=== PATIENT | female | born 1935 | race Caucasian/White ===

== ENCOUNTER 2022-10-07 00:11 | Observation (INO) | payer MEDICARE, SELFPAY ==
[2022-10-07] VITALS (16 sets, daily range): BP systolic 131–166; BP diastolic 48–88; PULSE 51–62; RESP 16–33; TEMP 36.3–37.1; O2SAT 90–96; BMI 33.3
--- NOTE | ~2022-10-07 | XR_ITS ---
EXAMINATION: XR chest 1V portable DATE: 10/07/2022 01:17 INDICATION: Chest pain. Shortness of breath. TECHNIQUE: A single frontal view of the chest was obtained. COMPARISON: CT abdomen and pelvis 10/07/2008 FINDINGS: The patient is rotated to her right. There are mild airspace opacities in right mid and low er lung zones and left lower lung zone. No pleural effusion or pneumothorax. The heart size is normal . IMPRESSION: 1. Mild airspace opacities in right mid and lower lung zones and left lower lung zone, consistent wit h atelectasis versus pneumonia. Reviewed, dictated and finalized at location A. IMPRESSION: 1. Mild airspace opacities in right mid and lower lung zones and left lower margarita g zone, consistent with atelectasis versus pneumonia.
--- NOTE | 2022-10-07 00:40 | ECG_ITS ---
Measurements Intervals [place] Rate: 53 P: 40 IN: 177 QRS: -80 QRSD: 171 T: 41 QT: 479 QTc: 454 Interpretive Statements SINUS BRADYCARDIA RIGHT BUNDLE BRANCH BLOCK LEFT ANTERIOR FASCICULAR BLOCK CANNOT RULE OUT SEPTAL INFARCT, AGE INDETERMINATE BASELINE ARTIFACT- I, II, AVR ABNORMAL ECG NO PREVIOUS ECG AVAILABLE FOR COMPARISON Electronically Signed On 10-07-2022 8:45:54 CDT by Malik Wiley D.O.
[2022-10-07 00:56] LABS: Basophils Absolute Auto 0.1 K/mm3 (0.0-0.1); Basophils Percent Auto 0.8 % (0.2-1.2); Eosinophils Absolute Auto 0.4 K/mm3 (0-0.3); Eosinophils Percent Auto 4.1 % (0-4.4); Hematocrit 45.6 % (37.0-47.0); Hemoglobin 14.7 g/dL (12.0-15.0); Immature Granulocyte Absolute 0.16 K/mm3 (0.00-0.031); Immature Granulocyte Percent A 1.6 % (0-0.5); Lymphocytes Absolute Auto 1.95 K/mm3 (0.9-3.2); Mean Corpuscular HGB Conc 32.2 g/dl (32-36); Mean Corpuscular Hemoglobin 28.5 pg (26-34); Mean Corpuscular Volume 88.4 fl (80-100); Mean Platelet Volume 9.9 fl (7.4-10.4); Monocytes Absolute Auto 0.8 K/mm3 (0.1-0.6); Monocytes Percent Auto 7.7 % (2.6-8.5); Neutrophils Absolute Auto 6.9 K/mm3 (1.3-6.7); Neutrophils Percent Auto 66.8 % (45.5-73.1); Platelet Count Result 226 k/mm3 (150-375); Red Blood Count 5.16 M/mm3 (4.2-5.4); Red Cell Distribution Width 15.9 % (11.5-14.5); White Blood Count 10.3 K/mm3 (4.5-10.0)
[2022-10-07 01:13] LABS: Alanine Aminotransferase 19 U/L (6-35); Albumin Level 4.1 g/dL (3.5-5.1); Alkaline Phosphatase 75 U/L (38-126); Anion Gap 6 mmol/L (8-16); Aspartate Amino Transferase 26 U/L (14-36); Bilirubin,Total 1.3 mg/dL (0.2-1.3); Blood Urea Nitrogen 20 mg/dL (7-17); Calcium 8.2 mg/dL (8.4-10.2); Carbon Dioxide 29 mmol/L (22-30); Chloride 104 mmol/L (98-107); Estimated CRCL calculation 41 ml/min; Estimated Glomerular Filt Rate 53; Glucose 94 mg/dL (65-110); Magnesium 2.2 mg/dL (1.6-2.3); Sodium 139 mmol/L (137-145)
[2022-10-07 01:18] LABS: NT Pro B Type Natriuretic Pept 1580 pg/mL (19.9-100); Troponin I 0.013 ng/mL (0.000-0.034)
[2022-10-07 01:22] LABS: Lactic Acid Reflex 0.7 mmol/L (0.7-2.0)
[2022-10-07 01:36] LABS: INR 1.1; Prothrombin Time 14.7 Seconds (11.1-14.7)
[2022-10-07 01:38] LABS: Partial Thromboplastin Time 56.4 SECONDS (22.3-36.8)
--- NOTE | 2022-10-07 01:41 | ED.GENADULT ---
HPI - General Adult General Chief complaint: Shortness of Breath/Dyspnea Stated complaint: SOB Time Seen by Provider: 10/07/22 00:32 History of Present Illness HPI narrative: Patient is a 87-year-old female who presents the emergency department with chief complaint of shortness of breath. Patient reports she has history of hypertension and reports that her primary doctor has been adjusting her blood pressure medicines and this evening she started feeling short of breath. Patient states she may have had a little bit of tightness in her chest when this happened but reports that the symptoms have improved when she was transported by EMS. Prehospital she was given oxygen when her oxygen saturation was 90% on room air. Patient states that her shortness of breath has resolved at this time. Related Data Home Medications Medication Instructions Recorded Confirmed allopurinol 300 mg tablet 300 mg PO DAILY 02/02/20 amlodipine 10 mg-valsartan 160 1 tablet PO DAILY 02/02/20 mg-hydrochlorothiazide 25 mg tablet furosemide 40 mg tablet 40 mg PO QAM 02/02/20 lisinopril 40 mg tablet 40 mg PO DAILY 02/02/20 nebivolol 10 mg tablet (Bystolic) 10 mg PO DAILY 02/02/20 omeprazole magnesium 20 mg 20 mg PO DAILY 02/02/20 capsule,delayed release (Acid Wood Shingle Roofer (omeprazole)) Allergies Allergy/AdvReac Type Severity Reaction Status Date / Time acetaminophen Allergy Mild BREAKS OUT Verified 10/07/22 00:27 AND ITCH Sulfa (Sulfonamide Allergy Mild DOESN'T Verified 10/07/22 00:27 Antibiotics) REMEMBER Review of Systems Review of Systems: A 10 system review of systems was completed on the patient and is negative except for what is stated in the HPI. Nursing and ancillary documentation was reviewed. Exam Narrative: GENERAL: Well-appearing, well-nourished, and in no acute distress. HEAD: Normocephalic, atraumatic. EYES: PERRLA and EOMI. ENT: Nares clear, no rhinorrhea or epistaxis. Mucous membranes moist. NECK: Supple. CHEST: Clear to auscultation. No respiratory distress. HEART: Regular rate and rhythm. No murmur heard. Normal peripheral pulses. ABDOMEN: Soft, nontender, nondistended, normal active bowel sounds. EXTREMITIES: Normal range of motion. Trace edema. SKIN: Warm, dry, no rash. NEURO: No focal deficits. Alert and oriented x3. PSYCH: Normal mood and affect. Course Vital Signs Vital signs: Vital Signs Pulse Rate 56 L 10/07/22 00:13 Respiratory Rate 22 H 10/07/22 00:13 Blood Pressure 146/56 H 10/07/22 00:13 Pulse Oximetry 90 10/07/22 00:13 Oxygen Delivery Room Air 10/07/22 00:13 Pulse Rate 55 L 10/07/22 01:52 Respiratory Rate 16 10/07/22 01:52 Blood Pressure 164/88 H 10/07/22 01:52 Pulse Oximetry 91 10/07/22 01:52 Oxygen Delivery Room Air 10/07/22 00:13 Medical Decision Making MDM Narrative Medical decision making narrative: Differential diagnosis includes hypertensive urgency, CHF exacerbation, fluid overload, NSTEMI, acute valvular insufficiency, Patient's chest x-ray showed no focal infiltrate Laboratory studies showed a troponin of 0.013 and a BNP of 1580. The patient had a creatinine of 1.0 and a hemoglobin of 14.7. Patient was a no longer hypoxic upon arrival to the emergency department although whenever she the patient was ambulated her oxygen saturation dropped down to 87% without oxygen. The patient was given a 20 mg IV dose of Lasix in the emergency department and due to the hypoxia the patient was admitted for echo and also gentle diuresis and additional blood pressure control. Vital Signs Vital Signs: Vital Signs Pulse Rate 56 L 10/07/22 00:13 Respiratory Rate 22 H 10/07/22 00:13 Blood Pressure 146/56 H 10/07/22 00:13 Pulse Oximetry 90 10/07/22 00:13 Oxygen Delivery Room Air 10/07/22 00:13 Pulse Rate 55 L 10/07/22 01:52 Respiratory Rate 16 10/07/22 01:52 Blood Pressure 164/88 H 10/07/22 01:52 Pulse Oximetry
--- NOTE | 2022-10-07 01:50 | PC.NURSE ---
Per EDP, patient to be ambulated to assess desaturation with exertion. Patient oxygen level decreased to 87%. EDP notified.
[2022-10-07 02:00] LABS: Potassium 3.9 mmol/L (3.4-5.0)
--- NOTE | 2022-10-07 02:11 | PM.IMHP ---
H&P: HPI History of Present Illness Date/Time: 10/07/22 02:11 Chief Complaint: Shortness of breath Narrative: This is an 87-year-old female with past medical history significant for hypertension, gout, GERD, patient presents to the emergency room via EMS due to shortness of breath and low oxygen saturation at home of 90%. Patient is really a poor historian states that she has been having trouble controlling her blood pressure and she was recently placed on a new medication and her primary care physician has been trying to adjust it. Patient denies any fevers, rigors, chills, nausea, vomiting, diarrhea, abdominal pain. Preliminary workup was significant for a chest x-ray was reported as: EXAMINATION: XR chest 1V portable DATE: 10/07/2022 01:17 INDICATION: Chest pain. Shortness of breath. TECHNIQUE: A single frontal view of the chest was obtained. COMPARISON: CT abdomen and pelvis 10/07/2008 FINDINGS: The patient is rotated to her right. There are mild airspace opacities in right mid and lower lung zones and left lower lung zone. No pleural effusion or pneumothorax. The heart size is normal. IMPRESSION: 1. Mild airspace opacities in right mid and lower lung zones and left lower lung zone, consistent with atelectasis versus pneumonia. Patient is been admitted for further evaluation management and treatment. Review of Systems Review of Systems: Patient is really poor historian states that has been having problems with her blood pressure recently started on a new medication and primary care physician has been trying to adjust comes in due to shortness of breath and low oxygen saturation Constitutional: Constitutional: Denies chills Cardiovascular: Cardiovascular: Reports dyspnea Respiratory: Respiratory: Reports cough Musculoskeletal: Musculoskeletal: Reports other (Right leg hardware and swelling) Integumentary/Breasts: Skin/Breast: Denies rash Neurologic: Denies focal weakness and Denies Sensory deficit (Neuro) Psychiatric: Psychiatric: Reports no additional psychiatric complaints and Reports as per HPI Endocrine: Endocrine: Reports no additional endocrine complaints, Reports as per HPI and Reports cold intolerance Hematologic/Lymphatic: Hematologic/Lymphatic: Reports no additional hematologic/lymphatic complaints and Reports as per HPI Allergic/Immunologic: Allergic/Immunologic: Reports no additional allergic/immunologic complaints and Reports as per HPI [facility] Social History Social History Smoking status: Former smoker Tobacco type: cigarettes Alcohol intake: never Substance use: never Substance use type: does not use Lack of Transportation: No Lack of Food: Never True Current Housing: I Have Housing Concerned About Future Housing: No Difficulty Paying Gas/Electric Bills: No Difficulty Paying for Meds: No Currently Unemployed: No Education: High School Diploma/GED Difficulty w/ Childcare or Family Care: No Spiritual care concerns: No Meds Home Medications and Allergies Home Medications Medication Instructions Recorded Confirmed Type allopurinol 300 mg tablet 300 mg PO DAILY 02/02/20 10/07/22 History lisinopril 40 mg tablet 40 mg PO DAILY 02/02/20 10/07/22 History nebivolol 10 mg tablet (Bystolic) 10 mg PO DAILY 02/02/20 10/07/22 History omeprazole magnesium 20 mg 20 mg PO DAILY 02/02/20 10/07/22 History capsule,delayed release (Acid Chicken Raiser (omeprazole)) alprazolam 0.25 mg tablet 0.25 mg PO TID PRN Anxiety 10/07/22 10/07/22 History amlodipine 10 mg tablet 10 mg PO DAILY 10/07/22 10/07/22 History pravastatin 20 mg tablet 20 mg PO DAILY 10/07/22 10/07/22 History vitamin B complex (B 1 tablet PO DAILY 10/07/22 10/07/22 History Complex-Vitamin B12 tablet) Allergies Allergy/AdvReac Type Severity Reaction Status Date / Time acetaminophen Allergy Mild BREAKS OUT Verified 10/07/22 00:27 AND I
[2022-10-07] MEDS: FUROSEMIDE INJ 40 MG/4 ML VIAL 20 MG IV PUSH (02:13)
--- NOTE | 2022-10-07 03:43 | ADMGEN ---
This patient, Maria E Cobb, was admitted to IMU Room 205-01. Patient/family oriented to hospital policies and general routines including ID bracelet, bed and alarms, visiting hours, pain management, procedures, bathroom and other care routines, personal items, smoking policy, room service/diet, and visiting hours. Information on how to activate the Rapid Response Team has been discussed. Patient/Family are encouraged to report perceived risks to care and to ask questions if they do not understand what they are told or what they should do.
[2022-10-07 05:05] LABS: Troponin I < 0.012 ng/mL (0.000-0.034)
[2022-10-07] MEDS: IPRATROPIUM BR 0.02% INH SOLN 0.5 MG/2.5 ML VIAL INHALATION (08:07)
[2022-10-07] MEDS: ALBUTEROL SULFATE NEB 2.5 MG/3 ML INH INHALATION (08:07)
[2022-10-07 08:39] LABS: Troponin I < 0.012 ng/mL (0.000-0.034)
[2022-10-07] MEDS: ENOXAPARIN 40 MG/0.4 ML SYRINGE SUB-Q (09:04)
[2022-10-07] MEDS: FUROSEMIDE INJ 40 MG/4 ML VIAL IV PUSH (09:04)
--- NOTE | 2022-10-22 15:53 | P.DS_ITS ---
DS: Admitting Diagnosis Discharge Date 10/07/22 Admitting Diagnosis sob DS: Discharge Diagnosis Discharge Diagnosis (1) Acute dyspnea: Code(s): R06.00 - Dyspnea, unspecified Status: Acute Assessment and Plan: Admit to med tele Supplemental oxygen and needed Try and keep oxygen saturation 98% Likely secondary to congestive heart failure Supportive care Continue to monitor (2) Elevated brain natriuretic peptide (BNP) level: Code(s): R79.89 - Other specified abnormal findings of blood chemistry Status: Acute Assessment and Plan: Aggressive diuresis Echocardiogram in a.m. Fluid restriction to 1500 cc in 24 hours of free water Supportive care Continue to monitor (3) Uncontrolled hypertension: Code(s): I10 - Essential (primary) hypertension Status: Acute Assessment and Plan: Resume home meds Continue to monitor DS: Summary Hospital Course Hospital Course: 87-year-old female with past medical history significant for hypertension, gout, GERD, patient presents to the emergency room via EMS due to shortness of breath and low oxygen saturation at home of 90%.? Patient is really a poor historian states that she has been having trouble controlling her blood pressure and she was recently placed on a new medication and her primary care physician has been trying to adjust it.? Patient denies any fevers, rigors, chills, nausea, vomiting, diarrhea, abdominal pain. patient left AMA prior to eval by hospitalist. Time Spent with Patient Time attestation: Total time spent providing and/or coordinating discharge services: Discharge Plan Discharge Consulting providers: Dimas Boyd V.; Malik Wiley Patient Disposition: Left Against Medical Advice Patient Instructions: Chest Pain (DC), Chronic Hypertension (DC) Discharge Medications: No Action omeprazole magnesium [Acid Industrial Engineering Director (omeprazole)] 20 mg capsule,delayed release(DR/EC) 20 mg PO DAILY lisinopril 40 mg tablet 40 mg PO DAILY allopurinol 300 mg tablet 300 mg PO DAILY Bystolic 10 mg tablet 10 mg PO DAILY amlodipine 10 mg Tablet 10 mg PO DAILY vitamin B complex [B Complex-Vitamin B12] Tablet 1 tablet PO DAILY pravastatin 20 mg Tablet 20 mg PO DAILY alprazolam 0.25 mg Tablet 0.25 mg PO TID PRN (Reason: Anxiety) Date of admission: 10/07/22 02:08 Primary Care Provider: Den,Javier Sanon Admitting Provider: Sun Paredes V. Attending physician on admission: Nona Bernstein Condition: Stable
== END 2022-10-07 11:15 | disposition left against medical advice (07) ==
LOC: ANHED 02:22 → ANHIMU 03:51
PROVIDERS: Admitting Provider Internal Medicine; Emergency Provider Emergency Medicine; PCP Internal Medicine; Visit Provider Student in an Organized Health Care Education/Training Program
DX: R06.00 Dyspnea, unspecified (principal); R79.89 Other specified abnormal findings of blood chemistry; I10 Essential (primary) hypertension; I45.2 Bifascicular block; R94.31 Abnormal electrocardiogram [ECG] [EKG]; R91.8 Other nonspecific abnormal finding of lung field; M10.9 Gout, unspecified; K21.9 Gastro-esophageal reflux disease without esophagitis; R09.02 Hypoxemia; Z87.891 Personal history of nicotine dependence; Z79.899 Other long term (current) drug therapy
CPT/HCPCS: 36415; 71045; 80053; 83605; 83735; 83880; 84484; 85025; 85610; 85730; 93005; 94640; 96372; 96374; 96376; 99285; G0378; J1650; J1940

== ENCOUNTER 2022-12-29 08:41 | Inpatient (IN) | payer MEDICARE, SELFPAY ==
[2022-12-29] VITALS (7 sets, daily range): BP systolic 138–175; BP diastolic 59–92; PULSE 59–67; RESP 18–33; TEMP 36.1–37.4; O2SAT 90–99; BMI 38.5
--- NOTE | ~2022-12-29 | US_ITS ---
EXAMINATION:US venous doppler LE BI INDICATION:Leg edema TECHNIQUE: Multiple grayscale, color flow and Doppler images of the right and left lower extremity de ep venous systems were obtained and reviewed. COMPARISON:No prior studies for comparison. FINDINGS: The common femoral, superficial femoral and popliteal veins demonstrate normal respiratory variation, augmentation and compressibility. Color flow is also seen within the posterior tibial, pe roneal, greater saphenous and profunda veins. IMPRESSION: 1: No lower extremity deep venous thrombosis. Reviewed, dictated and finalized at location A.
--- NOTE | ~2022-12-29 | XR_ITS ---
XR chest 2V DATE: 12/29/2022 09:26 INDICATION: Shortness of breath. History of COPD TECHNIQUE: AP and lateral views COMPARISON: 10/07/2022 portable AP chest at 0114 hours FINDINGS: Limited rotated AP view. Borderline heart size. No hilar or mediastinal enlargement is evident. Mild discoid atelectasis or scarring in the left mid and lower lung. Minimal infiltrate or atelectasi s in the right mid and both lower lung zones. No pleural effusion or pulmonary vascular congestion or pneumothorax is evident. Moderate bilateral h yperinflation. Osteopenia. Osteoarthritic change at both glenohumeral joints, right chronic rotator cuff atrophy. IMPRESSION: Mild discoid atelectasis or scarring, left midlung Minimal infiltrate or atelectasis in the right mid and both lower lung zones Moderate hyperinflation Reviewed, dictated and finalized at location B.
--- NOTE | ~2022-12-29 | XR_ITS ---
EXAMINATION: XR chest 2V Exam Date/Time: 12/30/2022 13:05 CDT HISTORY: Pneumonia Comparison: 12/29/2022. RESULT: Lines, tubes, and devices: None. Lungs and pleura: Mid and lower lung reticular and reticulonodular opacities. Cardiomediastinal silhouette: Stable. Other: No acute osseous or upper abdominal finding. IMPRESSION: Pulmonary opacities may represent respiratory radiculitis and/or interstitial edema. Reviewed, dictated and finalized at location K. IMPRESSION: Pulmonary opacities may represent respiratory radiculitis and/or interstitial e severo.
--- NOTE | 2022-12-29 08:47 | ECG_ITS ---
Measurements Intervals [place] Rate: 61 P: 55 NV: 178 QRS: -85 QRSD: 175 T: 50 QT: 468 QTc: 473 Interpretive Statements SINUS RHYTHM RIGHT BUNDLE BRANCH BLOCK LEFT ANTERIOR FASCICULAR BLOCK VOLTAGE CRITERIA FOR LVH CANNOT RULE OUT SEPTAL INFARCT, AGE INDETERMINATE BASELINE ARTIFACT- I, II, AVR, AVL, AVF, V4 ABNORMAL ECG COMPARED TO ECG 10/07/2022 00:25:53 SINUS RHYTHM NOW PRESENT Electronically Signed On 12-29-2022 19:28:37 CDT by Malik Wiley D.O.
[2022-12-29 09:10] LABS: Basophils Absolute Auto 0.1 K/mm3 (0.0-0.1); Basophils Percent Auto 0.7 % (0.2-1.2); Eosinophils Absolute Auto 0.4 K/mm3 (0-0.3); Eosinophils Percent Auto 3.6 % (0-4.4); Hematocrit 45.6 % (37.0-47.0); Hemoglobin 14.4 g/dL (12.0-15.0); Immature Granulocyte Absolute 0.11 K/mm3 (0.00-0.031); Immature Granulocyte Percent A 1.1 % (0-0.5); Lymphocytes Absolute Auto 1.61 K/mm3 (0.9-3.2); Lymphocytes Percent Auto 15.8 % (18.3-44.2); Mean Corpuscular HGB Conc 31.6 g/dl (32-36); Mean Corpuscular Hemoglobin 28.2 pg (26-34); Mean Corpuscular Volume 89.2 fl (80-100); Mean Platelet Volume 10.1 fl (7.4-10.4); Monocytes Absolute Auto 0.6 K/mm3 (0.1-0.6); Monocytes Percent Auto 5.9 % (2.6-8.5); Neutrophils Absolute Auto 7.4 K/mm3 (1.3-6.7); Neutrophils Percent Auto 72.9 % (45.5-73.1); Platelet Count Result 197 k/mm3 (150-375); Red Blood Count 5.11 M/mm3 (4.2-5.4); White Blood Count 10.2 K/mm3 (4.5-10.0)
[2022-12-29 09:19] LABS: Alanine Aminotransferase 20 U/L (6-35); Albumin Level 3.8 g/dL (3.5-5.1); Alkaline Phosphatase 83 U/L (38-126); Anion Gap 5 mmol/L (8-16); Aspartate Amino Transferase 26 U/L (14-36); Bilirubin,Total 1.1 mg/dL (0.2-1.3); Blood Urea Nitrogen 17 mg/dL (7-17); Calcium 8.1 mg/dL (8.4-10.2); Carbon Dioxide 29 mmol/L (22-30); Chloride 105 mmol/L (98-107); Estimated CRCL calculation 46 ml/min; Estimated Glomerular Filt Rate 60; Glucose 100 mg/dL (65-110); Potassium 3.9 mmol/L (3.4-5.0); Sodium 139 mmol/L (137-145)
--- NOTE | 2022-12-29 09:29 | ED.GENADULT ---
HPI - General Adult General Chief complaint: Shortness of Breath/Dyspnea Stated complaint: Dizzy, SOB Time Seen by Provider: 12/29/22 08:45 History of Present Illness HPI narrative: This is an 87-year-old female, past history of hypertension and hyperlipidemia, brought in by EMS for shortness of breath and lightheadedness. The patient states she woke this morning and on standing felt lightheaded. She also notes shortness of breath and the sensation of the room spinning. She denies any focal weakness or numbness. Related Data Home Medications Medication Instructions Recorded Confirmed allopurinol 300 mg tablet 300 mg PO DAILY 02/02/20 12/29/22 lisinopril 40 mg tablet 40 mg PO DAILY 02/02/20 12/29/22 nebivolol 10 mg tablet (Bystolic) 10 mg PO DAILY 02/02/20 12/29/22 omeprazole magnesium 20 mg 20 mg PO DAILY 02/02/20 12/29/22 capsule,delayed release (Acid Creative Arts Therapist (omeprazole)) alprazolam 0.25 mg tablet 0.25 mg PO TID PRN Anxiety 10/07/22 12/29/22 amlodipine 10 mg tablet 10 mg PO DAILY 10/07/22 12/29/22 pravastatin 20 mg tablet 20 mg PO HS 10/07/22 12/29/22 aspirin 325 mg tablet 325 mg PO DAILY 12/29/22 12/29/22 Allergies Allergy/AdvReac Type Severity Reaction Status Date / Time acetaminophen Allergy Mild BREAKS OUT Verified 10/07/22 00:27 AND ITCH Sulfa (Sulfonamide Allergy Mild DOESN'T Verified 10/07/22 00:27 Antibiotics) REMEMBER Review of Systems Review of Systems: CONSTITUTIONAL: Denies fever, chills, or sweats. EYES: Denies visual changes, redness, or discharge. ENT: Denies rhinorrhea, congestion, sore throat, or otalgia. CARDIOVASCULAR: Denies chest pain, palpitations, or edema. RESPIRATORY: Dyspnea denies cough GASTROINTESTINAL: Denies abdominal pain, nausea, vomiting, or diarrhea. GENITOURINARY: Denies dysuria or hematuria. SKIN: Denies rash or itching. MUSCULOSKELETAL: Denies back pain, joint pain, or myalgia. NEUROLOGIC: Vertigo denies headache, numbness, or weakness. PSYCHIATRIC: Denies anxiety or depression. PMFSH Past Medical History Medical History (Updated 12/29/22 @ 16:23 by Yarely Talbot NP) Anxiety Chronic GERD COPD (chronic obstructive pulmonary disease) Gout Heart murmur Heart valve insufficiency Hyperlipidemia Uncontrolled hypertension Surgical History Surgical History (Updated 12/29/22 @ 16:22 by Yarely Talbot NP) History of partial thyroidectomy S/P tonsillectomy and adenoidectomy Status post ORIF of fracture of ankle Right ankle Family History Family History Son Diabetes mellitus Hypertension Mother Heart valve disease Father Esophagus cancer Social History Social History (Updated 12/29/22 @ 16:24 by Yarely Talbot NP) Social History: The patient is . She has 3 children. She lives alone. Her daughter in-law anselmo Cobb is her durable power consumer attorney for healthcare. She is a former smoker. She is retired. Code status full code Smoking packs per day: 1 Smoking cigarettes per day: 20.0 Smoking status: Former smoker Tobacco type: cigarettes Alcohol intake: never Substance use: never Substance use type: does not use Lack of Transportation: No Lack of Food: Sometimes True Current Housing: I Have Housing Concerned About Future Housing: No Difficulty Paying Gas/Electric Bills: No Difficulty Paying for Meds: No Currently Unemployed: No Education: High School Diploma/GED Difficulty w/ Childcare or Family Care: No Spiritual care concerns: No Exam Narrative: GENERAL: Well-developed, well-nourished, and in no acute distress. HEAD: Normocephalic, atraumatic. EYES: PERRLA and EOMI. ENT: Nares clear, no rhinorrhea or epistaxis. Mucous membranes moist. Oropharynx without tonsillar hypertrophy exudate or other lesions. NECK: Supple. No adenopathy or masses. No JVD CHEST: Tachypneic. Clear to auscultation. No respiratory distress. N
[2022-12-29] MEDS: MECLIZINE HCL 25 MG TABLET PO (09:35)
[2022-12-29 09:37] LABS: Troponin I < 0.012 ng/mL (0.000-0.034)
[2022-12-29] MEDS: AZITHROMYCIN 500 MG/NS 250 ML 500 MG/250 ML BAG 250 MG IVPB (12:33)
--- NOTE | 2022-12-29 13:39 | PM.IMHP ---
H&P: HPI History of Present Illness Date/Time: 12/29/22 13:39 Chief Complaint: Shortness of breath Narrative: This is a 87-year-old female patient she has a history of hypertension and possibly COPD. The patient stated that she was diagnosed by 1 physician is COPD and another physician stated she does not have it. The patient was brought into the emergency room today for complaints of shortness of breath or lightheadedness. When the patient woke up this morning she felt lightheaded when she stood up. She felt like the room was spinning around. She denies any focal weakness. No numbness or tingling. She had no fever chills. White count is 10.2. Troponin negative x2. Chest x-ray was read as IMPRESSION: Mild discoid atelectasis or scarring, left midlung Minimal infiltrate or atelectasis in the right mid and both lower lung zones Moderate hyperinflation the patient was given meclizine, Rocephin, and azithromycin. The patient is being admitted to observation on the date of service 12/21/2022. Review of Systems Review of Systems: All systems reviewed & are unremarkable except as noted in HPI and below Constitutional: Constitutional: Reports as per HPI and Reports no additional constitutional complaints Eyes: Eyes: Reports as per HPI and Reports no additional eye complaints ENT: Reports system reviewed and no additional complaints, except as documented and Reports Normal hearing present Cardiovascular: Cardiovascular: Reports no additional cardiovascular complaints Respiratory: Respiratory: Reports no additional respiratory complaints and Reports no additional respiratory complaints Gastrointestinal: Gastrointestinal: Reports as per HPI and Reports no additional gastrointestinal complaints Musculoskeletal: Musculoskeletal: Reports no additional musculoskeletal complaints Integumentary/Breasts: Skin/Breast: Reports system reviewed and no additional complaints, except as docu and Reports as per HPI Neurologic: Reports system reviewed and no additional complaints, except as documented, Reports as per HPI and Reports Normal hearing present Psychiatric: Psychiatric: Reports no additional psychiatric complaints and Reports as per HPI Endocrine: Endocrine: Reports no additional endocrine complaints Hematologic/Lymphatic: Hematologic/Lymphatic: Reports no additional hematologic/lymphatic complaints Allergic/Immunologic: Allergic/Immunologic: Reports no additional allergic/immunologic complaints [facility] Past Medical History Medical History (Updated 12/29/22 @ 16:23 by Yarely Talbot NP) Anxiety Chronic GERD COPD (chronic obstructive pulmonary disease) Gout Heart murmur Heart valve insufficiency Hyperlipidemia Uncontrolled hypertension Surgical History Surgical History (Updated 12/29/22 @ 16:22 by Yarely Talbot NP) History of partial thyroidectomy S/P tonsillectomy and adenoidectomy Status post ORIF of fracture of ankle Right ankle Family History Family History Son Diabetes mellitus Hypertension Mother Heart valve disease Father Esophagus cancer Social History Social History (Updated 12/29/22 @ 16:24 by Yarely Talbot NP) Social History: The patient is . She has 3 children. She lives alone. Her daughter in-law anselmo Cobb is her durable power commercial attorney for healthcare. She is a former smoker. She is retired. Code status full code Smoking packs per day: 1 Smoking cigarettes per day: 20.0 Smoking status: Former smoker Tobacco type: cigarettes Alcohol intake: never Substance use: never Substance use type: does not use Lack of Transportation: No Lack of Food: Sometimes True Current Housing: I Have Housing Concerned About Future Housing: No Difficulty Paying Gas/Electric Bills: No Difficulty Paying for Meds: No Currently Unemployed: No Education: High School Diploma/GED Difficulty w/ Childcare or
--- NOTE | 2022-12-29 14:18 | ADMGEN ---
This patient, Maria E Cobb, was admitted to [facility] Surg Room 304-02 at 1300. Patient/family oriented to hospital policies and general routines including ID bracelet, bed and alarms, visiting hours, pain management, procedures, bathroom and other care routines, personal items, smoking policy, room service/diet, and visiting hours. Information on how to activate the Rapid Response Team has been discussed. Patient/Family are encouraged to report perceived risks to care and to ask questions if they do not understand what they are told or what they should do.
[2022-12-29 15:34] LABS: Troponin I < 0.012 ng/mL (0.000-0.034)
[2022-12-29] MEDS: methylPREDNISolone SOD SUCC 125 MG VIAL 60 MG IV PUSH ×2 (17:45→23:13)
[2022-12-29] MEDS: PRAVASTATIN SODIUM 20 MG TABLET PO (20:55)
[2022-12-30] VITALS (11 sets, daily range): BP systolic 117–162; BP diastolic 52–94; PULSE 63–86; RESP 18–22; TEMP 36.2–37.3; O2SAT 88–96
--- NOTE | 2022-12-30 | ECHO_ITS ---
Patient Info Name: Maria E Cobb Age: 87 years : 1935 Gender: Female Ht: 64 in Wt: 224 lbs BSA: 2.19 m2 HR: 78 bpm BP: 140 / 79 mmHg Heart Rhythm: Sinus Rhythm Technical Quality: Poor Exam Date: 12/30/2022 8:12 AM Exam Location: [facility] Pulmonary Exam Room: [facility] Patient Status: Inpatient Admit Date: 12/29/2022 Staff Ordering Physician: Yarely Talbot NP [place] Breaster: Celeste Mohamud RDCS Attending Provider: Leonel Paul MD Referring Physician: Antione DONNELLY; Exam Type: CA echo dop color flow w con Study Info Indications - murmur Complete two-dimensional, color flow and Doppler transthoracic echocardiogram is performed with contrast to opacify the left ventricle and to improve the deliniation of the left ventricle endocardial borders. Contrast/Agitated Saline Contrast/Ag. Saline: Definity Amount: 2.00 ml Administered By: Celeste Mohamud [facility] Existing IV Access: Yes IV Access Condition: patent with no signs of infiltration Reason for Poor Study: patient body habitus Summary 1. Left ventricular hypertrophy with normal systolic function and grade 1 diastolic noncompliance. 2. Left atrial enlargement. 3. Mitral annular calcification. 4. Severe aortic valve stenosis. Left Ventricle Left ventricular chamber dimension is normal. Left ventricular systolic function is normal, estimated at 65-70%. There is moderate concentric increased left ventricular wall thickness. The left ventricular diastolic function is grade I diastolic dysfunction. Right Ventricle Right ventricular chamber dimension is normal. Left Atria Left atrial chamber dimension is mildly enlarged. Right Atria Right atrial chamber dimension is normal. Aortic Valve The aortic valve is trileaflet. There is severe aortic valve sclerosis. There is severe aortic valve stenosis with a peak velocity of 454.66 cm/s, mean gradient of 50 mmHg, and aortic valve area of 0.84 cm2. Pulmonic Valve The pulmonic valve is not well visualized. Mitral Valve The mitral valve has normal leaflets. The mitral valve annulus is moderately calcified. Tricuspid Valve The tricuspid valve leaflets are normal. Pericardium/Pleural The pericardium appears normal. Aorta The aortic root size at the sinus of Valsalva is normal. Left Ventricular Outflow Tract Name Value Normal LVOT 2D LVOT Diameter 2.05 cm LVOT Doppler LVOT Peak Gradient 4 mmHg LVOT Mean Gradient 3 mmHg LVOT VTI 28.38 cm LVOT VTI/AV VTI Ratio 0.28 LVOT Stroke Volume 84.15 ml LVOT CO 16.18 l/min LVOT CI 7.89 L/min/m2 Pulmonic Valve Name Value Normal PV Doppler PV Peak Gradient 8 mmHg Mitral Valve
[2022-12-30 03:37] LABS: Glucose Point of Care 171 mg/dl (65-105)
[2022-12-30] MEDS: LORazepam INJ (*CRX) 2 MG/ML VIAL 0.5 MG IV PUSH (03:48)
--- NOTE | 2022-12-30 03:59 | PC.NURSE ---
pt up to use BR with PCT, who noticed patient seemed to be more confused than earlier in the night. PCT called RN to room. RN observed patient in bed shaking, breathing rapid and shallow, and stating that she feels a dizzy spell coming on. Vital signs and blood glucose obtained. Call placed to Dr. Paredes who ordered a one time dose of IVP ativan, and also instructed to not get patient out of bed again. Ativan administered per AUG, and pt's respirations improved. Pt lying in bed no longer shaking. Pt states she is still dizzy.
--- NOTE | 2022-12-30 04:59 | PCRCNOTE ---
Patient refused both 1999 and 199 updraft treatments stating she was breathing good. RT instructed pt to call RN if shortness of breath occurred. RN to RT if need be. Treatment to resume at 0800.
[2022-12-30] MEDS: methylPREDNISolone SOD SUCC 125 MG VIAL 60 MG IV PUSH (05:18)
[2022-12-30 06:50] LABS: Basophils Percent Auto 0.2 % (0.2-1.2); Hematocrit 46.8 % (37.0-47.0); Hemoglobin 14.8 g/dL (12.0-15.0); Immature Granulocyte Absolute 0.11 K/mm3 (0.00-0.031); Immature Granulocyte Percent A 1.2 % (0-0.5); Lymphocytes Percent Auto 10.1 % (18.3-44.2); Mean Corpuscular HGB Conc 31.6 g/dl (32-36); Mean Corpuscular Hemoglobin 27.8 pg (26-34); Mean Corpuscular Volume 87.8 fl (80-100); Mean Platelet Volume 10.8 fl (7.4-10.4); Monocytes Absolute Auto 0.1 K/mm3 (0.1-0.6); Monocytes Percent Auto 0.9 % (2.6-8.5); Neutrophils Absolute Auto 7.8 K/mm3 (1.3-6.7); Neutrophils Percent Auto 87.6 % (45.5-73.1); Platelet Count Result 212 k/mm3 (150-375); Red Blood Count 5.33 M/mm3 (4.2-5.4); Red Cell Distribution Width 15.8 % (11.5-14.5); White Blood Count 8.9 K/mm3 (4.5-10.0)
[2022-12-30 07:06] LABS: Anion Gap 5 mmol/L (8-16); Blood Urea Nitrogen 18 mg/dL (7-17); Calcium 8.2 mg/dL (8.4-10.2); Carbon Dioxide 27 mmol/L (22-30); Chloride 105 mmol/L (98-107); Estimated CRCL calculation 52 ml/min; Estimated Glomerular Filt Rate > 60; Glucose 146 mg/dL (65-110); Potassium 3.7 mmol/L (3.4-5.0); Sodium 137 mmol/L (137-145)
[2022-12-30] MEDS: PERFLUTREN LIPID MICROSPHERES 1.5 ML VIAL DILUTED TO 10 ML TOTAL VOLUME IV PUSH (08:40)
[2022-12-30] MEDS: NEBIVOLOL HCL 5 MG TABLET 10 MG PO (08:58)
[2022-12-30] MEDS: amLODIPine BESYLATE 5 MG TABLET 10 MG PO (08:58)
[2022-12-30] MEDS: lisinopriL 20 MG TABLET 40 MG PO (08:58)
[2022-12-30] MEDS: PANTOPRAZOLE 40 MG TABLET PO (08:58)
[2022-12-30] MEDS: ENOXAPARIN 40 MG/0.4 ML SYRINGE SUB-Q (08:59)
[2022-12-30] MEDS: allopurinoL 300 MG TABLET PO (08:59)
[2022-12-30] MEDS: ASPIRIN 325 MG TABLET PO (09:03)
--- NOTE | 2022-12-30 09:22 | PM.IMPN ---
Progress Note: A&P Assessment and Plan (1) Community acquired pneumonia: Qualifiers: Laterality: unspecified laterality Qualified Code(s): J18.9 - Pneumonia, unspecified organism Code(s): J18.9 - Pneumonia, unspecified organism Status: Acute Assessment and Plan: Based on ABNL CXR, WBC 10.2 12/30 WBC 8.9 Continue Ceftriaxone and Azithromycin (2) COPD (chronic obstructive pulmonary disease): Qualifiers: COPD type: COPD with acute exacerbation Qualified Code(s): J44.1 - Chronic obstructive pulmonary disease with (acute) exacerbation Code(s): J44.9 - Chronic obstructive pulmonary disease, unspecified Status: Acute Assessment and Plan: 12/30 transition from IV Solu-Medrol to PO prednisone (3) Heart murmur: Code(s): R01.1 - Cardiac murmur, unspecified Status: Acute Assessment and Plan: Echo pending for suspected (4) Chronic GERD: Code(s): K21.9 - Gastro-esophageal reflux disease without esophagitis Status: Acute Assessment and Plan: Continue omeprazole (5) Anxiety: Code(s): F41.9 - Anxiety disorder, unspecified Status: Acute Assessment and Plan: Continue Xanax (6) Uncontrolled hypertension: Code(s): I10 - Essential (primary) hypertension Status: Acute Assessment and Plan: Continue amlodipine, lisinopril and Bystolic. Subjective Date/time seen: 12/30/22 09:22 Interval history: Admitted 12/29/2022 with possible community-acquired pneumonia and dizziness. Denied dizziness today. Denied cough or shortness of breath. Denied chest pain. Tolerated diet. Denied GI or changes. Denied abnormal bleeding. Denied focal weakness numbness or difficulty talking or swallowing. Review of Systems Review of Systems: All systems reviewed & are unremarkable except as noted in HPI and below Exam Narrative: HEENT: PERRL, sclerae nonicteric, pharyngeal mucosa pink and intact NECK: No JVD, adenopathy, or thyromegaly CHEST: Clear to auscultation. Normal effort. HEART: NL S1/S2, regular, 3/6 RACQUEL RUSB TO CAROTIDS ABDOMEN: BS+, soft, nontender, no mass, no bruits EXTREMITIES: No cyanosis, edema, or clubbing NEUROLOGIC: CN intact and symmetric to inspection. MUSCULOSKELETAL: Tone and strength symmetric. PSYCH: Alert. Oriented to person, KNOWS SHE IS IN A HOSPITAL BUT NOT WHICH ONE, KNOWS YEAR BUT NOT MONTH. Objective Data Vital Signs Vital Signs: Vital Signs - 24 hr 12/29/22 09:32 12/29/22 11:19 12/29/22 12:52 Temperature Pulse Rate 60 59 L 62 Respiratory Rate 20 25 H 20 Blood Pressure 138/75 140/79 151/59 H Pulse Oximetry 93 94 99 Oxygen Delivery 12/29/22 13:23 12/29/22 20:00 12/29/22 22:00 Temperature 99.3 F 96.9 F L Pulse Rate 67 65 Respiratory Rate 26 H 18 Blood Pressure 165/68 H 140/79 Pulse Oximetry 90 94 Oxygen Delivery Room Air 12/30/22 06:00 Temperature 97.2 F L Pulse Rate 80 Respiratory Rate 22 H Blood Pressure 127/94 H Pulse Oximetry 88 L Oxygen Delivery Intake/Output Intake/Output: Intake & Output 12/27/22 12/28/22 12/29/22 12/30/22 23:59 23:59 23:59 23:59 Intake Total 1040 220 Balance 1040 220 Meds/Results Medications: Active Medications Generic Name Dose Route Start Last Admin Trade Name Freq PRN Reason Stop Dose Admin Albuterol 2.5 mg 12/29/22 20:00 12/30/22 08:37 Albuterol Sulfate Neb 2.5 Mg/3 Ml Inh INHALATION Not Given Q6HRT [facility] Allopurinol 300 mg 12/30/22 09:00 12/30/22 08:59 Allopurinol 300 Mg Tablet PO 300 mg DAILY [facility] Administration Alprazolam 0.25 mg 12/29/22 16:08 Alprazolam (*Crx) 0.25 Mg Tablet PO TID PRN Anxiety Amlodipine Besylate 10 mg 12/30/22 09:00 12/30/22 08:58 Amlodipine Besylate 5 Mg Tablet PO 10 mg DAILY [facility] Administration Aspirin 325 mg 12/30/22 09:00 12/30/22 09:03 Aspirin 325 Mg Tablet PO 325 mg DAILY [facility] Adminis
[2022-12-30] MEDS: AZITHROMYCIN 500 MG/NS 250 ML 500 MG/250 ML BAG 250 MG IVPB (12:55)
[2022-12-30] MEDS: ALBUTEROL SULFATE NEB 2.5 MG/3 ML INH INHALATION ×2 (14:01→20:51)
[2022-12-30] MEDS: IPRATROPIUM BR 0.02% INH SOLN 0.5 MG/2.5 ML VIAL INHALATION ×2 (14:02→20:51)
[2022-12-30] MEDS: PRAVASTATIN SODIUM 20 MG TABLET PO (20:13)
[2022-12-30] MEDS: BENZOCAINE/MENTHOL (*BKC) 18 EA LOZENGE 1 LOZENGE PO (20:37)
--- NOTE | 2022-12-30 21:37 | ECG_ITS ---
Measurements Intervals [place] Rate: 84 P: 70 PA: 219 QRS: -66 QRSD: 171 T: 66 QT: 445 QTc: 528 Interpretive Statements SINUS RHYTHM WITH FIRST DEGREE AV BLOCK RIGHT BUNDLE BRANCH BLOCK LEFT ANTERIOR FASCICULAR BLOCK LEFT VENTRICULAR HYPERTROPHY AND ST-T CHANGE CANNOT RULE OUT SEPTAL INFARCT, AGE INDETERMINATE ABNORMAL ECG COMPARED TO ECG 12/29/2022 08:48:48 FIRST DEGREE AV BLOCK NOW PRESENT Electronically Signed On 12-31-2022 8:48:03 CDT by Malik Wiley D.O.
[2022-12-30] MEDS: ALPRAZolam (*CRX) 0.25 MG TABLET PO (21:41)
--- NOTE | 2022-12-30 21:49 | PC.NURSE ---
pt c/o 9/10 chest pain after ambulating around in her room
--- NOTE | 2022-12-30 22:01 | PC.NURSE ---
called MD Paredes r/t c/o 02/11 chest pain
--- NOTE | 2022-12-30 22:08 | PC.NURSE ---
x3 trops q6h and 1 mg morphine ordered for pt c/o chest pain
--- NOTE | 2022-12-30 22:19 | PC.NURSE ---
ekg reported to MD Paredes
[2022-12-30] MEDS: MORPHINE SULFATE (*CRX) 2 MG/ML INJ 1 MG IV PUSH (22:24)
[2022-12-31] VITALS (16 sets, daily range): BP systolic 141–148; BP diastolic 45–81; PULSE 47–78; RESP 16–20; TEMP 35.6–36.7; O2SAT 93–100
[2022-12-31 00:01] LABS: Troponin I 0.097 ng/mL (0.000-0.034)
--- NOTE | 2022-12-31 00:02 | PC.NURSE ---
trop 0.097 called MD Paredes awaiting call back
[2022-12-31] MEDS: IPRATROPIUM BR 0.02% INH SOLN 0.5 MG/2.5 ML VIAL INHALATION (02:12)
[2022-12-31] MEDS: ALBUTEROL SULFATE NEB 2.5 MG/3 ML INH INHALATION ×2 (02:15→14:35)
[2022-12-31 03:26] LABS: Glucose Point of Care 237 mg/dl (65-105)
--- NOTE | 2022-12-31 07:07 | PC.NURSE ---
called lab assist for stat trop
[2022-12-31 08:11] LABS: Hematocrit 43.8 % (37.0-47.0); Hemoglobin 13.6 g/dL (12.0-15.0); Mean Corpuscular HGB Conc 31.1 g/dl (32-36); Mean Corpuscular Hemoglobin 27.9 pg (26-34); Mean Corpuscular Volume 89.9 fl (80-100); Mean Platelet Volume 10.4 fl (7.4-10.4); Platelet Count Result 246 k/mm3 (150-375); Red Blood Count 4.87 M/mm3 (4.2-5.4); Red Cell Distribution Width 16.1 % (11.5-14.5)
[2022-12-31 08:15] LABS: Anion Gap 7 mmol/L (8-16); Blood Urea Nitrogen 38 mg/dL (7-17); Calcium 8.1 mg/dL (8.4-10.2); Carbon Dioxide 29 mmol/L (22-30); Chloride 104 mmol/L (98-107); Estimated CRCL calculation 29 ml/min; Estimated Glomerular Filt Rate 33; Glucose 114 mg/dL (65-110); Potassium 4.4 mmol/L (3.4-5.0); Sodium 140 mmol/L (137-145)
[2022-12-31 08:29] LABS: NT Pro B Type Natriuretic Pept 1750 pg/mL (19.9-100)
--- NOTE | 2022-12-31 08:36 | PM.IMPN ---
Progress Note: A&P Assessment and Plan (1) NSTEMI (non-ST elevated myocardial infarction): Code(s): I21.4 - Non-ST elevation (NSTEMI) myocardial infarction Status: Acute Assessment and Plan: Based on episode of chest pain during the night with elevation of troponin I from undetectable admission to 1.9 on 12/31/2022 EKG with right bundle-branch block and left anterior fascicular block and first-degree AV block but no obvious ST changes 12/31/22 Transfer to IMU, and increase Lovenox, switch to heparin if creatinine continues to increase Cardiology consulted 12/31/22 Attempted to contact [facility] to notify them that their patient has an acute issue here and no one answered their on-call line (2) Aortic valve stenosis, acquired: Code(s): I35.0 - Nonrheumatic aortic (valve) stenosis Status: Acute Assessment and Plan: Severe by echocardiogram With associated chest pain, elevated troponin, shortness of breath, elevated BNP Cardiology consulted for consideration of valvuloplasty versus replacement versus medical management (3) BRADY (acute kidney injury): Code(s): N17.9 - Acute kidney failure, unspecified Status: Acute Assessment and Plan: Creatinine elevated from baseline 0.8 to 1.5 12/31/2022 May be related to decreased perfusion during episode chest pain and shortness of breath during the night Hold lisinopril Follow-up creatinine (4) Community acquired pneumonia: Qualifiers: Laterality: unspecified laterality Qualified Code(s): J18.9 - Pneumonia, unspecified organism Code(s): J18.9 - Pneumonia, unspecified organism Status: Acute Assessment and Plan: Based on ABNL CXR, WBC 10.2 12/30 WBC 8.9, 12/31 WBC 19, likely demargination due to acute episode during the night Continue Ceftriaxone and Azithromycin (5) Essential hypertension: Code(s): I10 - Essential (primary) hypertension Status: Acute Assessment and Plan: Continue Bystolic and amlodipine, hold lisinopril due to elevated creatinine of 1.5 12/31/2022 May require medication adjustment due to severe aortic stenosis (6) COPD (chronic obstructive pulmonary disease): Qualifiers: COPD type: COPD with acute exacerbation Qualified Code(s): J44.1 - Chronic obstructive pulmonary disease with (acute) exacerbation Code(s): J44.9 - Chronic obstructive pulmonary disease, unspecified Status: Acute Assessment and Plan: 12/30 transition from IV Solu-Medrol to PO prednisone 12/31 d/c prednisone (7) Chronic GERD: Code(s): K21.9 - Gastro-esophageal reflux disease without esophagitis Status: Acute Assessment and Plan: Continue PPI (8) Anxiety: Code(s): F41.9 - Anxiety disorder, unspecified Status: Acute Assessment and Plan: Continue Xanax prn Subjective Date/time seen: 12/31/22 08:36 Interval history: Admitted 12/29/2022 with possible community-acquired pneumonia and dizziness. Denied dizziness today. Denied cough. During the night had chest pain and shortness of breath during nebulizer treatment. Resolved with IV morphine. Echocardiogram showed severe aortic stenosis with normal LV function. She has been following with Dr. Andres her primary and with a towel inspector at [facility]. She last saw Cardiology a few weeks ago and was told her bowel was not bad enough to operate on. She sees her towel inspector about every 6 months. Denied GI or changes. Denied abnormal bleeding. Denied focal weakness numbness or difficulty talking or swallowing. Review of Systems Review of Systems: All systems reviewed & are unremarkable except as noted in HPI and below Exam Narrative: HEENT: PERRL, sclerae nonicteric, pharyngeal mucosa pink and intact NECK: No JVD, adenopathy, or thyromegaly CHEST: Clear to auscultation. Normal effort. HEART: NL S1/S2, regular, 3/6 RACQUEL RUSB TO CAROTIDS ABDOMEN: BS+, soft, nonten
[2022-12-31] MEDS: NEBIVOLOL HCL 5 MG TABLET 10 MG PO (08:40)
[2022-12-31] MEDS: PANTOPRAZOLE 40 MG TABLET PO (08:40)
[2022-12-31] MEDS: amLODIPine BESYLATE 5 MG TABLET 10 MG PO (08:41)
[2022-12-31] MEDS: allopurinoL 300 MG TABLET PO (08:41)
[2022-12-31] MEDS: ASPIRIN 325 MG TABLET PO (08:44)
[2022-12-31] MEDS: ALPRAZolam (*CRX) 0.25 MG TABLET PO (08:44)
[2022-12-31] MEDS: FUROSEMIDE INJ 40 MG/4 ML VIAL 20 MG IV PUSH (08:44)
[2022-12-31] MEDS: ENOXAPARIN 100 MG/ML SYRINGE SUB-Q ×2 (09:32→21:40)
--- NOTE | 2022-12-31 09:52 | PM.CNCAR ---
Assessment and Plan Assessment and plan (1) Aortic stenosis, severe: Code(s): I35.0 - Nonrheumatic aortic (valve) stenosis Status: Acute Plan This is an 87-year-old woman who has severe aortic valve stenosis is symptomatic with dyspnea. She also may have underlying concomitant coronary disease she had an episode of chest discomfort last night and there has been a moderate rise in her troponin level. This woman requires definitive treatment of her aortic valve disease and she is not stable enough for outpatient evaluation by her established airplane fueler. She should be transferred to higher level of care for further evaluation by her established physicians and see is the group that has been following this aortic valve disease longitudinally. Attempts have been made to contact those physicians on the phone this morning as of this moment does have been unsuccessful. Given her age and frailty I would presume she will be a better candidate for TAVR rather than surgical aortic valve replacement but obviously that evaluation has yet to occur. Leonel Monson MD [facility] History of Present Illness History of Present Illness Consult date/time: 12/31/22 09:52 Reason For Visit: Community Acquired Pneumonia Narrative: This is an 87-year-old woman I am seeing today at the request of the hospitalist because of severe aortic valve stenosis. She is unknown to me prior to this consultation but apparently is known to physicians in the [facility] and is known to have aortic valve stenosis for a number of years. She states that she is followed in their office regularly and has been told that her aortic valve disease is stable and does not require aggressive treatment/replacement. She has been to this [facility]'s emergency room a couple of times in the last couple of months with shortness of breath. The 1st episode looks like she left against medical advice the 2nd episode she was admitted to the hospital here 2 days ago. Her chief complaint was shortness of breath and dizziness. The patient's chest x-ray does look like bibasilar of pulmonary congestion. She had an echocardiogram done yesterday which demonstrates severe aortic valve stenosis with very good left ventricular systolic function and velocity/high gradient aortic stenosis. Peak ejection velocity is over 4.5 m/sec with a calculated valve area of 0.8 cm2. She states that yesterday while she was being evaluated in her room she felt significantly ill and had some is central retrosternal chest pain that radiated to the left shoulder area. She had troponin level ordered by the hospitalist following that event. Her baseline troponin on admission was 0.9 last evening was 1.9. In this setting I am seeing her in consultation. Because of the troponin rise she has been anticoagulated with Lovenox. She is comfortable sitting in the bedside chair at the time of this evaluation. In addition to that mentioned above her metabolic profile demonstrates her renal function has changed her creatinine has gone from normal to 1.5. Twelve lead electrocardiogram shows sinus rhythm with bifascicular block and voltage evidence of left ventricular hypertrophy. Review of Systems Constitutional: Constitutional: Reports no additional constitutional complaints and Reports lethargy Eyes: Eyes: Reports no additional eye complaints ENT: Reports system reviewed and no additional complaints, except as documented Cardiovascular: Cardiovascular: Reports as per HPI Respiratory: Respiratory: Reports dyspnea on exertion Gastrointestinal: Gastrointestinal: Reports no additional gastrointestinal complaints Musculoskeletal: Musculoskeletal: Reports back pain Integumentary/Breasts: Skin/Breast: Reports system reviewed and no additional complaints, except as docu Neurologic: Reports system reviewed and no additional complaints, except as documented Endocrine: Endocrine: Reports no additional en
--- NOTE | 2022-12-31 11:27 | PC.NURSE ---
This patient, Maria E Cobb, was transferred to [ IMU- 200] on 12/31/22 at 1122. Personal belongings sent with patient. Report given to IMU. Appropriate documentation sent with patient. PT transferred on tele with RN.
[2022-12-31] MEDS: AZITHROMYCIN 500 MG/NS 250 ML 500 MG/250 ML BAG 250 MG IVPB (12:48)
[2022-12-31 13:37] LABS: Albumin Level 3.7 g/dL (3.5-5.1); Anion Gap 8 mmol/L (8-16); Blood Urea Nitrogen 43 mg/dL (7-17); Carbon Dioxide 28 mmol/L (22-30); Chloride 104 mmol/L (98-107); Estimated CRCL calculation 29 ml/min; Estimated Glomerular Filt Rate 33; Glucose 85 mg/dL (65-110); Phosphorus 5.1 mg/dL (2.5-4.5); Potassium 3.7 mmol/L (3.4-5.0); Sodium 140 mmol/L (137-145)
--- NOTE | 2022-12-31 14:19 | PM.TDS ---
Transfer Discharge Sum: Prov Provider Date of admission: 12/31/22 12:03 Primary care physician: Javier Crenshaw, Admitting clinician: Leonel Paul MD Consults: 12/31/22 07:30 Consult to Physician Routine Comment: spoke to 12/31/22 @ 0856--/us Consulting Provider: Leonel Monson Reason for consultation: Severe with CHF Has provider been notified: Yes Receiving physician/facility: Ron[facility] Whitehead DS: Admitting Diagnosis Discharge Date December 31, 2022 Admitting Diagnosis Community-acquired pneumonia DS: Discharge Diagnosis Discharge Diagnosis (1) Aortic stenosis, severe: Code(s): I35.0 - Nonrheumatic aortic (valve) stenosis Status: Acute (2) BRADY (acute kidney injury): Code(s): N17.9 - Acute kidney failure, unspecified Status: Acute (3) Essential hypertension: Code(s): I10 - Essential (primary) hypertension Status: Acute (4) NSTEMI (non-ST elevated myocardial infarction): Code(s): I21.4 - Non-ST elevation (NSTEMI) myocardial infarction Status: Acute (5) COPD (chronic obstructive pulmonary disease): Qualifiers: COPD type: COPD with acute exacerbation Qualified Code(s): J44.1 - Chronic obstructive pulmonary disease with (acute) exacerbation Code(s): J44.9 - Chronic obstructive pulmonary disease, unspecified Status: Acute (6) Community acquired pneumonia: Qualifiers: Laterality: unspecified laterality Qualified Code(s): J18.9 - Pneumonia, unspecified organism Code(s): J18.9 - Pneumonia, unspecified organism Status: Acute (7) Chronic GERD: Code(s): K21.9 - Gastro-esophageal reflux disease without esophagitis Status: Acute Transfer Discharge Sum: Med Medications Active and Home Medications: Home Medications allopurinol 300 mg tablet 300 mg PO DAILY 02/02/20 [History Confirmed 12/29/22] lisinopril 40 mg tablet 40 mg PO DAILY 02/02/20 [History Confirmed 12/29/22] nebivolol 10 mg tablet (Bystolic) 10 mg PO DAILY 02/02/20 [History Confirmed 12/29/22] omeprazole magnesium 20 mg capsule,delayed release ([facility] (omeprazole)) 20 mg PO DAILY 02/02/20 [History Confirmed 12/29/22] alprazolam 0.25 mg tablet 0.25 mg PO TID PRN Anxiety 10/07/22 [History Confirmed 12/29/22] amlodipine 10 mg tablet 10 mg PO DAILY 10/07/22 [History Confirmed 12/29/22] pravastatin 20 mg tablet 20 mg PO HS 10/07/22 [History Confirmed 12/29/22] aspirin 325 mg tablet 325 mg PO DAILY 12/29/22 [History Confirmed 12/29/22] Active Medications Albuterol (Albuterol Sulfate Neb 2.5 Mg/3 Ml Inh) 2.5 mg INHALATION Q6HRT [facility] Last Admin: 12/31/22 07:31 Dose: Not Given Allopurinol (Allopurinol 300 Mg Tablet) 300 mg PO DAILY [facility] Last Admin: 12/31/22 08:41 Dose: 300 mg Alprazolam (Alprazolam (*Crx) 0.25 Mg Tablet) 0.25 mg PO TID PRN PRN Reason: Anxiety Last Admin: 12/31/22 08:44 Dose: 0.25 mg Amlodipine Besylate (Amlodipine Besylate 5 Mg Tablet) 10 mg PO DAILY [facility] Last Admin: 12/31/22 08:41 Dose: 10 mg Aspirin (Aspirin 325 Mg Tablet) 325 mg PO DAILY [facility] Last Admin: 12/31/22 08:44 Dose: 325 mg Benzocaine (Benzocaine/Menthol (*Bkc) 18 Ea Lozenge) 1 lozenge PO PRN PRN PRN Reason: Sore Throat Last Admin: 12/30/22 20:37 Dose: 1 lozenge Enoxaparin Sodium (Enoxaparin 100 Mg/Ml Syringe) 100 mg SUB-Q Q12HR [facility] Last Admin: 12/31/22 09:32 Dose: 100 mg Ceftriaxone Sodium (Rocephin 1 Gm/Ns 50 Ml) 1 gm in 50 mls @ 100 mls/hr IVPB Q24H [facility]ARY Last Admin: 12/31/22 14:13 Dose: 100 mls/hr Azithromycin (Zithromax) 500 mg in 250 mls @ 250 mls/hr IVPB Q24H [facility] Last Admin: 12/31/22 12:48 Dose: 250 mls/hr Ipratropium [place] (Ipratropium Br 0.02% Inh Soln 0.5 Mg/2.5 Ml Vial) 0.5 mg INHALATION Q6HRT [facility] Last Admin: 12/31/22 07:31 Dose: Not Given Nebivolol (Nebivolol Hcl 5 Mg Tablet) 10 mg PO DAILY [facility] Last Admin: 12/31/22 08:40 Dose: 10 mg Pantoprazole S
[2022-12-31] MEDS: PRAVASTATIN SODIUM 20 MG TABLET PO (21:40)
[2023-01-01] VITALS (7 sets, daily range): BP systolic 144–150; BP diastolic 51–68; PULSE 49–65; RESP 20; TEMP 36–36.5; O2SAT 92–94
[2023-01-01 05:22] LABS: Anion Gap 1 mmol/L (8-16); Blood Urea Nitrogen 45 mg/dL (7-17); Calcium 7.7 mg/dL (8.4-10.2); Carbon Dioxide 33 mmol/L (22-30); Chloride 105 mmol/L (98-107); Estimated CRCL calculation 33 ml/min; Estimated Glomerular Filt Rate 39; Glucose 86 mg/dL (65-110); Potassium 3.8 mmol/L (3.4-5.0); Sodium 139 mmol/L (137-145)
[2023-01-01 05:46] LABS: Hematocrit 46.9 % (37.0-47.0); Hemoglobin 14.5 g/dL (12.0-15.0); Mean Corpuscular HGB Conc 30.9 g/dl (32-36); Mean Corpuscular Hemoglobin 28.3 pg (26-34); Mean Corpuscular Volume 91.4 fl (80-100); Mean Platelet Volume 10.3 fl (7.4-10.4); Platelet Count Result 211 k/mm3 (150-375); Red Blood Count 5.13 M/mm3 (4.2-5.4); Red Cell Distribution Width 16.3 % (11.5-14.5); White Blood Count 12.7 K/mm3 (4.5-10.0)
[2023-01-01] MEDS: amLODIPine BESYLATE 5 MG TABLET 10 MG PO (09:18)
[2023-01-01] MEDS: NEBIVOLOL HCL 5 MG TABLET 10 MG PO (09:19)
[2023-01-01] MEDS: ASPIRIN 325 MG TABLET PO (09:19)
[2023-01-01] MEDS: ENOXAPARIN 100 MG/ML SYRINGE SUB-Q (09:19)
[2023-01-01] MEDS: PANTOPRAZOLE 40 MG TABLET PO (09:19)
[2023-01-01] MEDS: allopurinoL 300 MG TABLET PO (09:19)
== END 2023-01-01 10:18 | disposition short-term general hospital (02) | DRG 280 ==
LOC: ANHED 12:17 → ANH3MEDSUR 12:30 → ANHIMU 12-31 11:19
PROVIDERS: Internal Medicine; Admitting Provider Chiropractor; Emergency Provider Preventive Medicine Aerospace Medicine; PCP Internal Medicine; Visit Provider Internal Medicine
DX: I21.4 Non-ST elevation (NSTEMI) myocardial infarction (principal); J18.9 Pneumonia, unspecified organism; J44.0 Chronic obstructive pulmonary disease with (acute) lower respiratory infection; J44.1 Chronic obstructive pulmonary disease with (acute) exacerbation; N17.9 Acute kidney failure, unspecified; J98.11 Atelectasis; K21.9 Gastro-esophageal reflux disease without esophagitis; I10 Essential (primary) hypertension; I35.0 Nonrheumatic aortic (valve) stenosis; E78.5 Hyperlipidemia, unspecified; R01.1 Cardiac murmur, unspecified; F41.9 Anxiety disorder, unspecified; M10.9 Gout, unspecified; Z87.891 Personal history of nicotine dependence
CPT/HCPCS: 36415; 71046; 80048; 80053; 80069; 82948; 83880; 84443; 84484; 85025; 85027; 87040; 93005; 93970; 94640; 96365; 96367; 96372; 96375; 96376; 99285; A9270; C8929; G0378; J0456; J0696; J1650; J1940; J2060; J2270; J2930; Q9957

== ENCOUNTER 2023-05-14 18:02 | Inpatient (IN) | payer MEDICARE, SELFPAY ==
[2023-05-14] VITALS (7 sets, daily range): BP systolic 105–186; BP diastolic 85–90; PULSE 79–93; RESP 20–30; TEMP 35.9–36.4; O2SAT 85–100; BMI 31.1
--- NOTE | ~2023-05-14 | XR_ITS ---
EXAMINATION: XR chest 1V portable DATE: 05/14/2023 19:11 INDICATION: Hypoxia, weakness, ground-level fall. TECHNIQUE: frontal view of the chest was obtained. COMPARISON: Chest radiograph dated 12/30/2022 FINDINGS: Airspace opacities in the right mid and lower lung zones with obscuration of the right heart border c onsistent with pneumonia. Small right pleural effusion. Left lung is clear. No pneumothorax or left-s ided pleural effusion. Cardiomegaly. Aortic valve repair. Dual lead pacemaker seen with leads project ing over the expected locations of the right atrium and right ventricle. IMPRESSION: 1. Opacities in the right mid and lower lung zone concerning for pneumonia. 2. Small right pleural effusion. 3. Cardiomegaly. Reviewed, dictated and finalized at location A. N COMMODITY MANAGER
--- NOTE | ~2023-05-14 | CT_ITS ---
EXAMINATION: CT brain wo con DATE: 05/14/2023 19:30 INDICATION: Mental status changes TECHNIQUE: Computed tomography (CT) of the head was performed without intravenous contrast. Sagittal and coronal reconstructions were performed. The mA was adjusted according to patient size. Iterative reconstruction technique was employed. The dose-length product was 605.33 mGy-cm. COMPARISON: None FINDINGS: There is decreased attenuation in the left basal ganglia in the region of the head of the caudate nuc leus and anterior limb of the internal capsule with suggestion of subtle mass effect upon the anterio r horn of the left lateral ventricle suggesting cytotoxic edema related to relatively recent infarct. Could not absolutely exclude a hypodense mass. Ventricles are otherwise normal and symmetric. No acu te intracranial hemorrhage or abnormal extra axial fluid collection. There is moderate to severe scat tered white matter hypoattenuation consistent with chronic small vessel ischemic disease. Symmetric p rominence of the sulci consistent with moderate age-appropriate diffuse cerebral volume loss. Changes of bilateral intraocular lens replacement. The orbits and mastoid air cells are normal. The callosal thickening the left ethmoid sinus with opacification of the anteriormost air cell as well as the lef t frontal sinus. IMPRESSION: 1. Region of decreased attenuation suggestive mild associated mass effect at the anterior left basal ganglia most likely related to an acute or subacute infarct although a malignant mass could not be ex cluded. Consider follow-up pre and postcontrast MRI for further evaluation. 2. Age-related changes including moderate diffuse volume loss and moderate to severe scattered white matter hypoattenuation consistent with chronic small vessel ischemic disease. 3. Sinus disease with complete opacification of left frontal sinus and anterior left ethmoid air cell s. Reviewed, dictated and finalized at location A. ER FINISHER IMPRESSION: 1. Region of decreased attenuation suggestive mild associated mass effect at th e anterior left basal ganglia most likely related to an acute or subacute infar ct although a malignant mass could not be excluded. Consider follow-up pre and postcontrast MRI for further evaluation. 2. Age-related changes including moderate diffuse volume loss and moderate to s evere scattered white matter hypoattenuation consistent with chronic small vess el ischemic disease. 3. Sinus disease with complete opacification of left frontal sinus and anterior left ethmoid air cells.
--- NOTE | ~2023-05-14 | CT_ITS ---
EXAMINATION: CT cervical spine wo con DATE: 05/14/2023 19:30 INDICATION: Trauma with posterior head injury TECHNIQUE: Computed tomography (CT) of the cervical spine was performed without intravenous contrast. Automated exposure control and iterative reconstruction technique were employed. The dose-length pro duct was 498.15 mGy-cm. COMPARISON: None FINDINGS: 2 mm retrolisthesis C5 on C6, 2 mm anterolisthesis C7 on T1 and 1 mm anterolisthesis T2 on T3. Verteb ral body heights are normal. No acute fracture. Severe disc height loss and severe bilateral uncovert ebral osteoarthritis at C5-C6 and C6-C7. Additional mild to moderate cervical uncovertebral osteoarth ritis at the remaining cervical levels. Moderate disc height loss at C3-C4 and C7-T1 and mild disc he ight loss at C2-C3 and C4-C5. Multilevel bilateral severe cervical facet osteoarthritis, left greater than right. Multilevel disc bulges and posterior disc osteophyte complexes resulting in mild to mode rate central canal stenosis at C5-C6 and C6-C7 and mild central canal stenosis remaining cervical lev els. There is also moderate to severe neural foraminal stenosis on the left at C3-C4 and C4-C5 with m oderate neural foraminal stenosis at the majority the remaining cervical and a few of the bilateral u pper thoracic levels. Biapical emphysema and posterior layering small right pleural effusion. IMPRESSION: 1. Severe cervical spondylosis. No acute osseous abnormality. 2. Small right pleural effusion. Reviewed, dictated and finalized at location A. L BUFFER
--- NOTE | 2023-05-14 18:28 | ED.FALL ---
HPI - Fall General Chief Complaint: Fall Stated Complaint: fall Time Seen by Provider: 05/14/23 18:22 History of Present Illness HPI Narrative: Patient is an 87 year old female with history of COPD, CHF, aortic stenosis here after a fall. She notes that she was at her facility when something hit her in the back of her neck and she fell out of her wheelchair onto the ground. She denies any other injuries. Currently notes a headache. She additionally states that she has had some mild chest pain and shortness of breath for the last few days. Cannot provide additional information about these symptoms. Family provides additional history noting that she fell out of her wheelchair today. She was quite ill this past summer requiring hospitalization and surgery for her aortic stenosis, having a cardiac arrest during this surgery requiring pacemaker placement. She also started treatment for lung cancer and established with an oncologist. About 6 weeks ago she came down with a UTI, requiring 2 separate rounds of antibiotics and she has had issues since then. They note that she has good days and bad days and is occasionally having auditory and visual hallucinations and speaking nonsensically. They do not notice a large change in her mental status today. Related Data Home Medications Medication Instructions Recorded Confirmed allopurinol 300 mg tablet 300 mg PO DAILY 02/02/20 12/29/22 lisinopril 40 mg tablet 40 mg PO DAILY 02/02/20 12/29/22 alprazolam 0.25 mg tablet 0.25 mg PO TID PRN Anxiety 10/07/22 12/29/22 aspirin 325 mg tablet 81 mg PO DAILY 02/27/23 clopidogrel 75 mg tablet 75 mg PO DAILY 02/27/23 furosemide 20 mg tablet 20 mg PO BID 02/27/23 meclizine 25 mg tablet 25 mg PO TID PRN 02/27/23 pravastatin 20 mg tablet 40 mg PO HS 02/27/23 Allergies Allergy/AdvReac Type Severity Reaction Status Date / Time acetaminophen Allergy Mild BREAKS OUT Verified 02/27/23 08:46 AND ITCH Sulfa (Sulfonamide Allergy Mild DOESN'T Verified 02/27/23 08:46 Antibiotics) REMEMBER Review of Systems Review of Systems: All systems reviewed & are unremarkable except as noted in HPI and below PMFSH Past Medical History Medical History Anxiety Chronic GERD COPD (chronic obstructive pulmonary disease) Gout Heart murmur Heart valve insufficiency Hyperlipidemia Impacted cerumen of right ear Uncontrolled hypertension Vertigo Surgical History Surgical History History of partial thyroidectomy S/P tonsillectomy and adenoidectomy Status post ORIF of fracture of ankle Right ankle Family History Family History Son Diabetes mellitus Hypertension Mother Heart valve disease Father Esophagus cancer Social History Social History Social History: The patient is . She has 3 children. She lives alone. Her daughter in-law anselmo Cobb is her durable power corporate librarian for healthcare. She is a former smoker. She is retired. Code status full code Caffeine- coffee Smoking packs per day: 1 Smoking cigarettes per day: 20.0 Smoking status: Former smoker Tobacco type: cigarettes Smoking end date: 06/04/08 Alcohol intake: never Substance use: never Substance use type: does not use Lack of Transportation: No Lack of Food: Sometimes True Current Housing: I Have Housing Concerned About Future Housing: No Difficulty Paying Gas/Electric Bills: No Difficulty Paying for Meds: No Currently Unemployed: No Education: High School Diploma/GED Difficulty w/ Childcare or Family Care: No Spiritual care concerns: No Exam Narrative: GENERAL: Well-appearing, well-nourished, and in no acute distress. HEAD: Normocephalic, atraumatic. EYES: PERRLA and EOMI. ENT: Nares clear. M
--- NOTE | 2023-05-14 18:39 | ECG_ITS ---
Measurements Intervals [place] Rate: 93 P: 49 MA: 192 QRS: -74 QRSD: 148 T: 71 QT: 377 QTc: 470 Interpretive Statements SINUS RHYTHM WITH FREQUENT VENTRICULAR PREMATURE COMPLEXES WITH OCCASIONAL SUPRAVENTRICULAR PREMATURE COMPLEXES POSSIBLE LEFT ATRIAL ENLARGEMENT [-0.1mV P WAVE IN V1/V2] LEFT ANTERIOR FASCICULAR BLOCK RIGHT BUNDLE BRANCH BLOCK [120+ ms QRS DURATION, UPRIGHT V1, 40+ ms S IN I/aVL/V4/V5/V6] ABNORMAL ECG COMPARED TO ECG 12/30/2022 22:05:21 LEFT-AXIS DEVIATION NOW PRESENT Electronically Signed On 05-15-2023 16:53:05 HUC OB by Clifton Qureshi M.D.
[2023-05-14 19:20] LABS: Appearance Urine Cloudy (Clear); Bacteria Urine None Seen /hpf; Bilirubin Urine 2+ (Negative); Blood Urine Negative (Negative); Color Urine Dark Yellow (Yellow); Glucose Urine UA Negative (Negative); Hyaline Casts Urine Present /lpf; Ketones Urine Trace mg/dL (Negative); Leukocyte Esterase Ur Trace LEU/UL (Negative); Nitrate Urine Negative (Negative); Non Pathogenic Casts >20; Protein Urine 2+ mg/dL (Negative); Specific Grav Ur 1.024 (1.001-1.035); Squamous Epithelial Cell Urine Occasional /hpf (Few); WBC Urine 0-5 /hpf; pH Urine 5.5 (5.0-9.0)
[2023-05-14 19:21] LABS: Add Urine Microscopic? YES
[2023-05-14 19:31] LABS: Influenza A QL RT-PCR Negative (Negative); Influenza B QL RT-PCR Negative (Negative); RSV RNA, RT-PCR Negative (Negative); SARS-CoV-2 RNA PCR Negative (Negative)
[2023-05-14 19:47] LABS: Basophils Absolute Auto 0.1 K/mm3 (0.0-0.1); Basophils Percent Auto 0.6 % (0.2-1.2); Eosinophils Absolute Auto 0.2 K/mm3 (0-0.3); Eosinophils Percent Auto 1.5 % (0-4.4); Hematocrit 45.6 % (37.0-47.0); Immature Granulocyte Absolute 0.16 K/mm3 (0.00-0.031); Immature Granulocyte Percent A 1.5 % (0-0.5); Lymphocytes Absolute Auto 0.87 K/mm3 (0.9-3.2); Mean Corpuscular HGB Conc 28.5 g/dl (32-36); Mean Corpuscular Hemoglobin 26.9 pg (26-34); Mean Corpuscular Volume 94.2 fl (80-100); Mean Platelet Volume 10.5 fl (7.4-10.4); Monocytes Absolute Auto 0.7 K/mm3 (0.1-0.6); Monocytes Percent Auto 6.8 % (2.6-8.5); Neutrophils Absolute Auto 8.8 K/mm3 (1.3-6.7); Neutrophils Percent Auto 81.6 % (45.5-73.1); Platelet Count Result 145 k/mm3 (150-375); Red Blood Count 4.84 M/mm3 (4.2-5.4); Red Cell Distribution Width 20.3 % (11.5-14.5); White Blood Count 10.8 K/mm3 (4.5-10.0)
--- NOTE | 2023-05-14 19:54 | ECG_ITS ---
Measurements Intervals [place] Rate: 95 P: 56 [place]: 182 QRS: -75 QRSD: 152 T: 79 QT: 375 QTc: 473 Interpretive Statements SINUS RHYTHM WITH FREQUENT VENTRICULAR PREMATURE COMPLEXES POSSIBLE LEFT ATRIAL ENLARGEMENT [-0.1mV P WAVE IN V1/V2] RIGHT BUNDLE BRANCH BLOCK [120+ ms QRS DURATION, UPRIGHT V1, 40+ ms S IN I/aVL/V4/V5/V6] LEFT ANTERIOR FASCICULAR BLOCK [QRS AXIS <= -45, QR IN I, RS IN II] ABNORMAL ECG COMPARED TO ECG 05/14/2023 18:54:08 NO SIGNIFICANT CHANGES Electronically Signed On 05-15-2023 16:54:08 CAUSTIC CRESYLATE SHIFT SUPERINTENDENT by Clifton Qureshi M.D.
[2023-05-14 19:58] LABS: INR 1.2; Prothrombin Time 16.3 Seconds (11.1-14.7)
[2023-05-14 20:01] LABS: Alanine Aminotransferase 13 U/L (6-35); Albumin Level 3.3 g/dL (3.5-5.1); Alkaline Phosphatase 79 U/L (38-126); Anion Gap 1 mmol/L (8-16); Aspartate Amino Transferase 36 U/L (14-36); Bilirubin,Total 1.7 mg/dL (0.2-1.3); Blood Urea Nitrogen 16 mg/dL (7-17); Calcium 8.3 mg/dL (8.4-10.2); Carbon Dioxide 37 mmol/L (22-30); Chloride 106 mmol/L (98-107); Estimated CRCL calculation 44 ml/min; Estimated Glomerular Filt Rate 60; Glucose 108 mg/dL (65-110); Potassium 3.8 mmol/L (3.4-5.0); Sodium 144 mmol/L (137-145)
[2023-05-14 20:09] LABS: Hypochromasia 1+ (NORMAL); Ovalocytes 1+ (NORMAL); Schistocytes None Seen (NORMAL)
[2023-05-14 20:12] LABS: NT Pro B Type Natriuretic Pept 1600 pg/mL (19.9-100); Troponin I 0.027 ng/mL (0.000-0.034)
[2023-05-14] MEDS: DOXYCYCLINE 100 MG/NS 100 ML 100 MG/100 ML BAG IVPB (21:04)
--- NOTE | 2023-05-14 21:07 | PM.IMHP ---
H&P: HPI History of Present Illness Date/Time: 05/14/23 21:07 Chief Complaint: Fall Narrative: This is an 87-year-old female with past medical history significant for lung cancer, severe aortic stenosis, a stroke, wheelchair-bound, resides at half-way facility. Patient was brought to the emergency room after she fell out of her wheelchair patient has had multiple hospitalizations recently in had cardiac arrest during aortic valve replacement procedure required pacemaker placement. Patient is unable to give much history due to obtundation. Alpha had a lengthy conversation as well as emergency room doctor the decision has been made to make the patient hospice and comfort care measures only. Due to the nature of her advanced illness and findings on CT of the head with possible metastatic lesion to the brain. EXAMINATION: XR chest 1V portable DATE: 05/14/2023 19:11 INDICATION: Hypoxia, weakness, ground-level fall. TECHNIQUE: frontal view of the chest was obtained. COMPARISON: Chest radiograph dated 12/30/2022 FINDINGS: Airspace opacities in the right mid and lower lung zones with obscuration of the right heart border consistent with pneumonia. Small right pleural effusion. Left lung is clear. No pneumothorax or left-sided pleural effusion. Cardiomegaly. Aortic valve repair. Dual lead pacemaker seen with leads projecting over the expected locations of the right atrium and right ventricle. IMPRESSION: 1. Opacities in the right mid and lower lung zone concerning for pneumonia. 2. Small right pleural effusion. 3. Cardiomegaly. EXAMINATION: CT brain wo con DATE: 05/14/2023 19:30 INDICATION: Mental status changes TECHNIQUE: Computed tomography (CT) of the head was performed without intravenous contrast. Sagittal and coronal reconstructions were performed. The mA was adjusted according to patient size. Iterative reconstruction technique was employed. The dose-length product was 605.33 mGy-cm. COMPARISON: None FINDINGS: There is decreased attenuation in the left basal ganglia in the region of the head of the caudate nucleus and anterior limb of the internal capsule with suggestion of subtle mass effect upon the anterior horn of the left lateral ventricle suggesting cytotoxic edema related to relatively recent infarct. Could not absolutely exclude a hypodense mass. Ventricles are otherwise normal and symmetric. No acute intracranial hemorrhage or abnormal extra axial fluid collection. There is moderate to severe scattered white matter hypoattenuation consistent with chronic small vessel ischemic disease. Symmetric prominence of the sulci consistent with moderate age-appropriate diffuse cerebral volume loss. Changes of bilateral intraocular lens replacement. The orbits and mastoid air cells are normal. The callosal thickening the left ethmoid sinus with opacification of the anteriormost air cell as well as the left frontal sinus. IMPRESSION: 1. Region of decreased attenuation suggestive mild associated mass effect at the anterior left basal ganglia most likely related to an acute or subacute infarct although a malignant mass could not be excluded. Consider follow-up pre and postcontrast MRI for further evaluation. 2. Age-related changes including moderate diffuse volume loss and moderate to severe scattered white matter hypoattenuation consistent with chronic small vessel ischemic disease. 3. Sinus disease with complete opacification of left frontal sinus and anterior left ethmoid air cells. EXAMINATION: CT cervical spine wo con DATE: 05/14/2023 19:30 INDICATION: Trauma with posterior head injury TECHNIQUE: Computed tomography (CT) of the cervical spine was performed without intravenous contrast. Automated exposure control and iterative reconstruction technique were employed. The dose-length product was 498.15 mGy-cm. COMPARISON: None FINDINGS: 2 mm retrolisthesis C5 on C6, 2 mm anterolisthesis C7 on T1 and 1 mm anterolisth
--- NOTE | 2023-05-14 23:14 | ADMGEN ---
This patient, Maria E Cobb, was admitted to [facility] Surg Room 331-01. Patient/family oriented to hospital policies and general routines including ID bracelet, bed and alarms, visiting hours, pain management, procedures, bathroom and other care routines, personal items, smoking policy, room service/diet, and visiting hours. Information on how to activate the Rapid Response Team has been discussed. Patient/Family are encouraged to report perceived risks to care and to ask questions if they do not understand what they are told or what they should do.
[2023-05-14 23:50] LABS: Troponin I 0.033 ng/mL (0.000-0.034)
[2023-05-15] VITALS (7 sets, daily range): BP systolic 140–152; BP diastolic 47–48; PULSE 83–85; RESP 20–28; TEMP 35.9–36; O2SAT 68–96
[2023-05-15] MEDS: SCOPOLAMINE 1.5 MG PATCH TRANSDERM (09:52)
[2023-05-15] MEDS: LORazepam INJ (*CRX) 2 MG/ML VIAL 1 MG IV PUSH (11:40)
[2023-05-15] MEDS: MORPHINE SULFATE (*CRX) 4 MG/ML INJ IV PUSH ×2 (11:57→17:05)
--- NOTE | 2023-05-15 13:07 | PM.IMPN ---
Progress Note: A&P Assessment and Plan (1) Brain mass: Code(s): G93.89 - Other specified disorders of brain Status: Acute Assessment and Plan: CT scan showed region of decreased attenuation suggestive mild associated mass effect at the anterior left basal ganglia most likely related to an acute or subacute infarct although a malignant mass could not be excluded. comfort care measures only decided per family care coordination following for hospice placement (2) Lung cancer: Code(s): C34.90 - Malignant neoplasm of unspecified part of unspecified bronchus or lung Status: Acute Assessment and Plan: follows with oncologist already, family decided to stop treatment prior to admission comfort care, awaiting hospice placement (3) Encephalopathy: Code(s): G93.40 - Encephalopathy, unspecified Status: Acute (4) Acute hypoxic respiratory failure: Code(s): J96.01 - Acute respiratory failure with hypoxia Status: Acute Assessment and Plan: oxygen and morphine per comfort care measures available (5) Abnormal CT of brain: Code(s): R90.89 - Other abnormal findings on diagnostic imaging of central nervous system Status: Acute Assessment and Plan: comfort care measures only (6) Aortic stenosis, severe: Code(s): I35.0 - Nonrheumatic aortic (valve) stenosis Status: Acute Assessment and Plan: see above (7) COPD (chronic obstructive pulmonary disease): Qualifiers: COPD type: COPD with acute exacerbation Qualified Code(s): J44.1 - Chronic obstructive pulmonary disease with (acute) exacerbation Code(s): J44.9 - Chronic obstructive pulmonary disease, unspecified Status: Chronic Assessment and Plan: see above Subjective Date/time seen: 05/15/23 13:07 Interval history: Patient is an 87 year old female with history of COPD, CHF, aortic stenosis admitted from ED after a fall. She noted that she was at her facility when something hit her in the back of her neck and she fell out of her wheelchair onto the ground. She denied any other injuries. Family provides additional history noting that she fell out of her wheelchair yesterday. She was quite ill this past summer requiring hospitalization and surgery for her aortic stenosis, having a cardiac arrest during this surgery requiring pacemaker placement. She also started treatment for lung cancer and established with an oncologist. About 6 weeks ago she came down with a UTI, requiring 2 separate rounds of antibiotics and she has had issues since then. They note that she has good days and bad days and is occasionally having auditory and visual hallucinations and speaking nonsensically. They do not notice a large change in her mental status at time of admission. Patient condition and CT results showing possible metastasis of a brain mass unseen on CT scan 2 weeks prior by oncologist, has decided on hospice placement and comfort care measures only. Patient\s daughters have been here visiting and discussing options for evaluation of in patient out outpatient hospice with care coordination. Discussed at length about discontinuing unnecessary home medications, providing diet as option if patient would like to eat per family preference. Main concern is preventing recurrent hallucinations and her mental status as she appears to be in steady decline. O2 sats have become a struggle today, PRN Ativan and morphine available. Will make her comfortable until final hospice decision made. Patient is sleeping at time of exam, not in acute distress but difficult to arouse to an alert or awake status. May be appropriate for inpatient hospice pending evaluation. Review of Systems Review of Systems: ROS unobtainable: Yes unobtainable due to mental status (Obtundation) Exam Narrative: limited exam: GENERAL: Sleeping, no acute distress. HEAD: Normocephalic, atraumatic. EYES
[2023-05-15] MEDS: MORPHINE SULFATE (*CRX) 2 MG/ML INJ IV PUSH (14:15)
--- NOTE | 2023-05-24 12:22 | PM.DS ---
DS: Admitting Diagnosis Discharge Date 05/15/23 Admitting Diagnosis altered mental status DS: Discharge Diagnosis Discharge Diagnosis (1) Brain mass: Code(s): G93.89 - Other specified disorders of brain Status: Acute Assessment and Plan: CT scan showed region of decreased attenuation suggestive mild associated mass effect at the anterior left basal ganglia most likely related to an acute or subacute infarct although a malignant mass could not be excluded. comfort care measures only decided per family care coordination following for hospice placement - patient went into inpatient hospice on 05/15/23 (2) Lung cancer: Code(s): C34.90 - Malignant neoplasm of unspecified part of unspecified bronchus or lung Status: Acute Assessment and Plan: follows with oncologist already, family decided to stop treatment prior to admission comfort care, patient went into inpatient hospice 05/15/23 (3) Encephalopathy: Code(s): G93.40 - Encephalopathy, unspecified Status: Acute (4) Acute hypoxic respiratory failure: Code(s): J96.01 - Acute respiratory failure with hypoxia Status: Acute Assessment and Plan: oxygen and morphine per comfort care measures available (5) Abnormal CT of brain: Code(s): R90.89 - Other abnormal findings on diagnostic imaging of central nervous system Status: Acute Assessment and Plan: comfort care measures only (6) Aortic stenosis, severe: Code(s): I35.0 - Nonrheumatic aortic (valve) stenosis Status: Acute Assessment and Plan: see above (7) COPD (chronic obstructive pulmonary disease): Qualifiers: COPD type: COPD with acute exacerbation Qualified Code(s): J44.1 - Chronic obstructive pulmonary disease with (acute) exacerbation Code(s): J44.9 - Chronic obstructive pulmonary disease, unspecified Status: Chronic Assessment and Plan: see above DS: Summary Hospital Course Hospital Course: This discharge summary is being written after 05/15/23 as the patient was not discharged to inpatient hospice until after my departure for the day. This is the most recent documentation I had given for the patient, see prior hospitalist progress not. Patient went into inpatient hospice late in the day on 05/15/23. Status at Discharge Functional status at discharge: bed bound Overall status at discharge: patient is not back to baseline Time Spent with Patient Time attestation: Total time spent providing and/or coordinating discharge services: Exam Narrative: limited exam performed on 05/15/23: GENERAL: Sleeping, no acute distress. HEAD: Normocephalic, atraumatic. EYES: unable to assess NECK: Supple. CHEST: Clear to auscultation. No respiratory distress. HEART: RRR. Normal peripheral pulses. ABDOMEN: Soft, nontender, nondistended. EXTREMITIES: No edema. SKIN: Warm, dry, no rash. NEURO: unable to assess PSYCH: unable to assess, but calm and appropriate for condition Const: General: comfortable, no acute distress, well developed, lethargic, patient obtunded and obese Nutritional Appearance: obese Orientation/consciousness: oriented to person, oriented to place, patient obtunded and lethargic HENMT: Head: normal to inspection, normocephalic and atraumatic Ears: hearing grossly normal bilaterally Face/Nose/Sinus: normal facial exam Face and sinus: normal facial exam Eyes: General: appearance normal, both eyes and all related structures Pupils: Equal, round and reactive pupils present EOM: EOMs intact bilaterally Neck: Neck: full ROM, no lymphadenopathy and no JVD Thyroid: thyroid normal Lymphatic: no lymphadenopathy noted Resp: Effort & Inspection: normal respiratory effort and able to speak in complete sentences Auscultation: diminished lung sounds Cardio: Jugular venous distension: no JVD Rate: regular rate Rhythm: regular rhythm Heart sounds: S1 normal
== END 2023-05-15 17:32 | disposition hospice, inpatient (51) | DRG 70 ==
LOC: ANHED 21:21 → ANH3MEDSUR 21:59
PROVIDERS: Admitting Provider Internal Medicine; Emergency Provider Student in an Organized Health Care Education/Training Program; PCP Internal Medicine; Visit Provider Nurse Practitioner
DX: G93.89 Other specified disorders of brain (principal); J96.01 Acute respiratory failure with hypoxia; C34.90 Malignant neoplasm of unspecified part of unspecified bronchus or lung; G93.40 Encephalopathy, unspecified; R90.89 Other abnormal findings on diagnostic imaging of central nervous system; I35.0 Nonrheumatic aortic (valve) stenosis; J44.9 Chronic obstructive pulmonary disease, unspecified; W05.0XXA Fall from non-moving wheelchair, initial encounter; Z51.5 Encounter for palliative care; K21.9 Gastro-esophageal reflux disease without esophagitis; Z20.822 Contact with and (suspected) exposure to COVID-19; F41.9 Anxiety disorder, unspecified; E78.5 Hyperlipidemia, unspecified; I10 Essential (primary) hypertension; Z87.891 Personal history of nicotine dependence; Z95.2 Presence of prosthetic heart valve; Z99.3 Dependence on wheelchair; Z86.73 Personal history of transient ischemic attack (TIA), and cerebral infarction without residual deficits; Z95.0 Presence of cardiac pacemaker
CPT/HCPCS: 36415; 70450; 71045; 72125; 80053; 81001; 83880; 84484; 85025; 85610; 85730; 87637; 93005; 99291; A9270; J0696; J2060; J2270

== ENCOUNTER 2023-05-15 17:33 | HOS | payer OTHER, MEDICARE, SELFPAY ==
[2023-05-15 18:05] VITALS: O2SAT 94
[2023-05-15 18:06] VITALS: BMI 31.1
--- NOTE | 2023-05-15 18:19 | PM.IMHP ---
H&P: HPI History of Present Illness Date/Time: 05/15/23 18:19 Chief Complaint: Uncontrolled restlessness Narrative: This 87-year-old female was living in her apartment until December of 2022. She ambulated with walker and was eating adequately. She performs her own ADLs. In December 2022 she experienced a urinary tract infection with associated encephalopathy. She was found to have an aortic murmur and severe aortic stenosis by echocardiography. She was transferred to [facility] where a right lung mass was discovered. Imaging of brain was negative. She underwent a TAVR for aortic stenosis. She continued to have hallucinations and confusion intermittently. After discharge she went to assisted living facility in [place]. She was treated with Keytruda for her lung cancer. She was gradually losing mobility and appetite. A CT of the brain 2 weeks ago was negative for tumor or stroke. On the evening of May 14 she was found by facility staff on the floor for apartment. Family was notified and the patient was transferred to the emergency department. There she had chest x-ray with abnormalities in the right mid to lower lung. And CT of the brain showed a basal ganglia lesion with mass effect on the left. Patient was thrashing restless and her oxygen saturation was dropping as low as the 60s. Because of her multiple comorbidities and recent rapid decline in mental and functional status the family opted for inpatient hospice care for symptom management. Review of Systems Review of Systems: ROS unobtainable: Yes unobtainable due to medical condition PMFSH Past Medical History Medical History Anxiety Chronic GERD COPD (chronic obstructive pulmonary disease) Gout Heart murmur Heart valve insufficiency Hyperlipidemia Impacted cerumen of right ear Uncontrolled hypertension Vertigo Surgical History Surgical History History of partial thyroidectomy S/P tonsillectomy and adenoidectomy Status post ORIF of fracture of ankle Right ankle Family History Family History Son Diabetes mellitus Hypertension Mother Heart valve disease Father Esophagus cancer Social History Social History (Updated 05/15/23 @ 18:20 by Eder Mcgowan MD) Social History: The patient is . She has 3 children. She lives alone at assisted living. Her daughter in-law anselmo Cobb is her durable power geothermal system installer for healthcare. She is a former smoker. She is retired. Code status: DNR Caffeine- coffee Smoking packs per day: 1 Smoking cigarettes per day: 20.0 Smoking status: Former smoker Tobacco type: cigarettes Smoking end date: 06/04/08 Alcohol intake: never Substance use: never Substance use type: does not use Lack of Transportation: No Lack of Food: Sometimes True Current Housing: I Have Housing Concerned About Future Housing: No Difficulty Paying Gas/Electric Bills: No Difficulty Paying for Meds: No Currently Unemployed: No Education: High School Diploma/GED Difficulty w/ Childcare or Family Care: No Spiritual care concerns: No Meds Home Medications and Allergies Home Medications Medication Instructions Recorded Confirmed Type No Home Medications 05/15/23 05/15/23 History Allergies Allergy/AdvReac Type Severity Reaction Status Date / Time acetaminophen Allergy Mild BREAKS OUT Verified 02/27/23 08:46 AND ITCH Sulfa (Sulfonamide Allergy Mild DOESN'T Verified 02/27/23 08:46 Antibiotics) REMEMBER Exam Narrative: Alert female lying in hospital bed in no acute distress Psychiatric unresponsive to verbal or tactile stimuli Head normocephalic Neck without JVD Chest coarse breath sounds with mild tachypnea and shallow respirations Heart normal S1-S2 regular rate soft systolic ej
[2023-05-15] MEDS: MORPHINE SULFATE INJ (*CRX) 50 MG in SODIUM CHLORIDE 0.9% IV 95 ML IV CONT (18:37)
--- NOTE | 2023-05-16 16:02 | PM.DDS ---
Discharge Summary Date and Time Date of : 05/15/23 Time of : 20:17 Provider Pronounced By: Missael Benoit RN Probable Cause of Probable Cause of : Lung cancer with respiratory failure, hypoxia, and abnormal CT brain with possible stroke Summary Hospital Course: Admitted to inpatient hospice service for uncontrolled dyspnea and agitation. Medications were titrated to comfort. Mrs. Cobb peacefully. Additional Data Confirmation of as documented by pronouncing clinician: Pupillary Reflex, Palpable Pulses, Response to Stimuli, Heart Tones and Breath Sounds Name of Provider Notified: Juan M Time Provider Notified: 20:17 Supervisor Ride Assembly Notified: Yes Date [facility] Notified of : 05/15/23 Time [facility] Notified of : 20:37
== END 2023-05-15 20:17 | disposition expired | DRG 951 ==
LOC: ANH3MEDSUR 17:47
PROVIDERS: Admitting Provider Internal Medicine; PCP Internal Medicine; Visit Provider Internal Medicine
DX: Z51.5 Encounter for palliative care (principal); J96.01 Acute respiratory failure with hypoxia; C34.90 Malignant neoplasm of unspecified part of unspecified bronchus or lung; G93.40 Encephalopathy, unspecified; R90.89 Other abnormal findings on diagnostic imaging of central nervous system; F41.9 Anxiety disorder, unspecified; K21.9 Gastro-esophageal reflux disease without esophagitis; J44.9 Chronic obstructive pulmonary disease, unspecified; E78.5 Hyperlipidemia, unspecified; I10 Essential (primary) hypertension; I35.0 Nonrheumatic aortic (valve) stenosis; Z66 Do not resuscitate; Z87.891 Personal history of nicotine dependence
CPT/HCPCS: A9270; J2270